=== PATIENT | female | born 1985 | race Hispanic/Latino ===

== ENCOUNTER 2017-10-24 11:48 | Emergency (ER) | payer BC ==
[2017-10-24 11:53] VITALS: BMI 27.9
--- NOTE | 2017-10-24 12:36 | ED PDOC ---
HPI: Female Pain Time Seen by Provider: 10/24/17 12:33 Chief Complaint (Nursing): Female Genitourinary Chief Complaint (Provider): Vaginal Bleeding with History Per: Patient Onset/Duration Of Symptoms: Hrs (four) Current Symptoms Are (Timing): Still Present Severity: Mild Quality Of Discomfort: Dull Past Medical History Vital Signs: Last Vital Signs Temp 98 F 10/24/17 11:52 Pulse 69 10/24/17 11:52 Resp BP 113/69 10/24/17 11:52 Pulse Ox 100 10/24/17 11:52 - Medical History PMH: Hypothyroidism - Family History Family History: States: Unknown Family Hx - Allergies Allergies/Adverse Reactions: Allergies Allergy/AdvReac Type Severity Reaction Status Date / Time MRI CONTRAST Allergy RASH Uncoded 10/24/17 12:44 Review of Systems ROS Statement: Except As Marked, All Systems Reviewed And Found Negative Genitourinary Female: Positive for: Frequency, Vaginal Bleeding, Other ( by betaHCG) Physical Exam - Reviewed Nursing Documentation Reviewed: Yes Vital Signs Reviewed: Yes - Physical Exam Appears: Positive for: Non-toxic, No Acute Distress, Uncomfortable Head Exam: Positive for: ATRAUMATIC, NORMAL INSPECTION, NORMOCEPHALIC Skin: Positive for: Normal Color, Warm, Dry Eye Exam: Positive for: Normal appearance Neck: Positive for: Normal, Painless ROM, Supple, Decreased ROM Cardiovascular/Chest: Positive for: Regular Rate, Rhythm, Chest Non Tender. Negative for: Edema, Gallop, Bradycardia, Tachycardia, Irregularly Irregular Respiratory: Positive for: Normal Breath Sounds. Negative for: Accessory Muscle Use, Crackles, Rales, Rhonchi, Stridor, Wheezing, Respiratory Distress Pulses-Carotid (L): 2+ Pulses-Carotid (R): 2+ Pulses-Radial (L): 2+ Pulses-Radial (R): 2+ Gastrointestinal/Abdominal: Positive for: Bowel Sounds (normal in all four quadrants), Soft, Tenderness (suprapubic tenderness). Negative for: Guarding, Rebound, Asicites Pelvic Exam: Positive for: External Exam Normal, Speculum Exam Normal, Active Bleeding, Other (chap: Bel) - Laboratory Results Result Diagrams: 10/24/17 13:03 10/24/17 13:03 - ECG O2 Sat by Pulse Oximetry: 100 Medical Decision Making Medical Decision Making: US CBC CMP HCG UA r/o miscarriage, as pt has active baginal bleeding; pelvic exam indicates closed cervix and active bleeding US results HC 8 days prior and now [address] Castillo, who indciated that it is probably a miscarry and she should f/u with her OB onMonday Disposition - Clinical Impression Clinical Impression: Abnormal in first trimester - Patient ED Disposition Is Patient to be Admitted: No Discussed With Dr.: Chandler Castillo Doctor Will See Patient In The: Office Counseled Patient/Family Regarding: Studies Performed, Diagnosis, Need For Followup - Disposition Disposition: Routine/Home Disposition Time: 15:54 Condition: STABLE Additional Instructions: pt will follwo up with OB on Thursday Beta Results: 586 as of 10/24 at 1600 U/S: no evidence of IUP Instructions: Tests, Medications and , Threatened Miscarriage Forms: [email or web address] (Vietnamese)
[2017-10-24 13:09] LABS: BASO # 0.1 K/uL (0.0-0.2); BASO % 0.6 % (0.0-2.0); EOS % 0.6 % (0.0-4.0); HEMOGLOBIN 12.7 g/dL (12.0-16.0); LYMPH # 1.8 K/uL (1.0-4.3); LYMPH % 20.1 % (20.0-40.0); MEAN CELL VOLUME 88.4 fl (81.0-99.0); MEAN CORPUSCULAR HEMOGLOBIN 29.7 pg (27.0-31.0); MEAN CORPUSCULAR HGB CONC 33.6 g/dL (33.0-37.0); MEAN PLATELET VOLUME 8.4 fl (7.2-11.7); MONO # 0.7 K/uL (0.0-0.8); MONO % 8.1 % (0.0-10.0); NEUT # 6.1 K/uL (1.8-7.0); NEUT % 70.6 % (50.0-75.0); NRBC % 0.1 % (0.0-0.0); RBC 4.28 Mil/uL (3.80-5.20); RED CELL DISTRIBUTION WIDTH 13.7 % (11.5-14.5); WHITE BLOOD COUNT 8.7 K/uL (4.8-10.8)
[2017-10-24 13:28] LABS: ALB/GLOB RATIO 1.1 (1.0-2.1); ALBUMIN 4.3 g/dL (3.5-5.0); ALT/SGPT 26 U/L (9-52); AST/SGOT 27 U/L (14-36); BLOOD UREA NITROGEN 7 mg/dl (7-17); GFR AFRICAN-AMERICAN > 60; GFR NON-AFRICAN AMERICAN > 60
[2017-10-24 14:07] LABS: URINE COLOR STRAW (YELLOW)
[2017-10-24 14:08] LABS: URINE BILIRUBIN NEGATIVE (NEGATIVE); URINE BLOOD LARGE (NEGATIVE); URINE CLARITY Clear (Clear); URINE GLUCOSE (UA) NEGATIVE (Normal); URINE PROTEIN TRACE mg/dL (NEGATIVE); URINE UROBILINOGEN 0.2 mg/dL (0.2-1.0)
[2017-10-24 14:09] LABS: SQUAMOUS EPITHIAL 2 /hpf (0-5); URINE BACTERIA NEG (<OCC); URINE LEUKOCYTE ESTERASE NEGATIVE Leu/uL (Negative)
[2017-10-24 14:10] LABS: URINE AMORPHOUS SEDIMENT OCC /ul (<OCC)
--- NOTE | 2017-10-24 15:55 | US ---
HISTORY: Preg w bleeding COMPARISON: None available. TECHNIQUE: Endovaginal ultrasound examination of the pelvis was performed FINDINGS: UTERUS: Measures 7.5 x 4.3 x 4.6 cm. Normal in size and appearance. No fibroid or other mass lesion seen. ENDOMETRIUM: Measures 18 mm in diameter. There is 0.4 x 0.24 x 0.4 centimeters cyst or cystic structure at the endometrium may represent very air leak gestational sac versus pseudo gestational sac. CERVIX: No cervical abnormality identified. RIGHT OVARY: Measures 3 x 2 x 3.4 cm. No solid mass. Normal flow. There is a complex cystic lesion at the right ovary measures 1.6 x 1.5 x 1.5 centimeter may represent corpus luteum cyst. LEFT OVARY: Left ovary was not visualized FREE FLUID: Small amount of free fluid seen in the pelvis. OTHER FINDINGS: None. IMPRESSION: No definite evidence of intrauterine noted in this exam. 0.4 centimeter cystic structure in the endometrium may represent very early gestational sac versus pseudo gestational sac. Close follow-up reassessment is suggested. Complex cyst at the right ovary measures 1.6 centimeter likely represent corpus luteum cyst.
[2017-10-24 16:22] VITALS: BP 139/60; PULSE 71; RESP 16; TEMP 98.4; O2SAT 98
== END 2017-10-24 16:15 | disposition home or self-care (01) ==
LOC: H.ER 11:48
DX: O20.9 Hemorrhage in early pregnancy, unspecified (principal); E03.9 Hypothyroidism, unspecified